=== PATIENT | female | born 1990 | race Hispanic/Latino ===

== ENCOUNTER 2018-04-08 10:04 | Emergency (ER) | payer BC ==
--- NOTE | 2018-04-08 10:30 | EDPHYS ---
Physician Documentation [facility] Name: Tanja Deleon Age: 28 yrs Sex: Female : 1990 Arrival Date: 04/08/2018 Time: 10:09 Bed 14 Private MD: Out, [facility] ED Physician Sebastian Fleming HPI: 04/08 10:25 This 28 yrs old Female presents to ER via Ambulatory with complaints of Ear gs Pain. 10:25 The patient presents with a fullness, pain. The complaints affect the right ear. Onset: gs The symptoms/episode began/occurred 2 day(s) ago. Modifying factors: The symptoms are alleviated by nothing, the symptoms are aggravated by touching. Associated signs and symptoms: Pertinent negatives: fever. Severity of symptoms: At their worst the symptoms were severe in the emergency department the symptoms are unchanged. The patient has not experienced similar symptoms in the past. 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 - Social history:: Smoking status: Patient/guardian denies using tobacco, Patient uses alcohol, only on a social basis. - Ebola Screening: : Patient negative for fever greater than or equal to 101.5 degrees Fahrenheit, and additional compatible Ebola Virus Disease symptoms Patient denies exposure to infectious person Patient denies travel to an Ebola-affected area in the 21 days before illness onset No symptoms or risks identified at this time. ROS: 10:25 All other systems are negative. gs Exam: 10:25 Head/Face: Normocephalic, atraumatic. Eyes: Pupils equal round and reactive to light, gs extra-ocular motions intact. Lids and lashes normal. Conjunctiva and sclera are non-icteric and not injected. Cornea within normal limits. Periorbital areas with no swelling, redness, or edema. Neck: Trachea midline, no thyromegaly or masses palpated, and no cervical lymphadenopathy. Supple, full range of motion without nuchal rigidity, or vertebral point tenderness. No Meningismus. Chest/axilla: Normal chest wall appearance and motion. Nontender with no deformity. No lesions are appreciated. Cardiovascular: Regular rate and rhythm with a normal S1 and S2. No gallops, murmurs, or rubs. Normal PMI, no JVD. No pulse deficits. Respiratory: Lungs have equal breath sounds bilaterally, clear to auscultation and percussion. No rales, rhonchi or wheezes noted. No increased work of breathing, no retractions or nasal flaring. Abdomen/GI: Soft, non-tender, with normal bowel sounds. No distension or tympany. No guarding or rebound. No evidence of tenderness throughout. Back: No spinal tenderness. No costovertebral tenderness. Full range of motion. Skin: Warm, dry with normal turgor. Normal color with no rashes, no lesions, and no evidence of cellulitis. MS/ Extremity: Pulses equal, no cyanosis. Neurovascular intact. Full, normal range of motion. Neuro: Awake and alert, GCS 15, oriented to person, place, time, and situation. Cranial nerves II-XII grossly intact. Motor strength 5/5 in all extremities. Sensory grossly intact. Cerebellar exam normal. Normal gait. 10:25 Constitutional: The patient appears alert, awake. 10:25 ENT: External ear(s): pain with movement, that is moderate, of the right ear canal, Ear canal(s): swelling, that is minimal, of the right canal, TM's: dullness, erythema, fluid levels, loss of bony landmarks, on the right. Vital Signs: 10:20 BP 148 / 106; Pulse 87; Resp 16; Temp 98.6; Pulse Ox 98% on R/A; Weight 91.63 kg; aj Height 5 ft. 0 in. (152.40 cm); Pain 9/10; 10:20 Body Mass Index 39.45 (91.63 kg, 152.40 cm) aj MDM: 10:23 Patient medically screened. gs 10:25 Differential diagnosis: otitis media, otitis externa, acute otalgia. Data reviewed: vital signs, nurses notes. Response to treatment: There is no appreciated change of the patient's symptoms at this time, and as a result, I will initiate a consult, with an ENT specialist. Administered Medications: 10:32 Drug: Farnam 10 mg-325 mg 1 tabs Route: PO; rb1 10:39 Follow up: Response: Medication administered at discharge. rb1 Disposition: 04/08/18 10:29 Discharged to Home. Impression: Otalgia and effusion of ear, Acute suppurative otitis media. - Condition is Stable. - Prescriptions for Ciprodex 0.3- 0.1 % Otic Drops, Suspension - instill 4 drop by OTIC route every 12 hours for 7 days , for ears ONLY; 1 Container. - Medication Reconciliation Form, Thank You Letter, Antibiotic Education, Prescription Opioid Use form. - Follow up: Private Physician; When: 2 - 3 days; Reason: Re-evaluation by your physician. Follow up: Gaby Angulo MD; When: Tomorrow; Reason: 230. Signatures: Ashley Whyte RN RN aj Meghan Hartman RN RN rb1 Sebastian Fleming MD MD Corrections: (The following items were deleted from the chart) 10:32 10:29 04/08/2018 10:29 Discharged to Home. Impression: Otalgia and effusion of ear; gs Acute suppurative otitis media. Condition is Stable. Forms are Medication Reconciliation Form, Thank You Letter, Antibiotic Education, Prescription Opioid Use. Follow up: Private Physician; When: 2 - 3 days; Reason: Re-evaluation by your physician. gs 10:40 10:32 04/08/2018 10:29 Discharged to Home. Impression: Otalgia and effusion of ear; rb1 Acute suppurative otitis media. Condition is Stable. Prescriptions for Ciprodex 0.3-0.1 % Otic Drops, Suspension - instill 4 drop by OTIC route every 12 hours for 7 days , for ears ONLY; 1 Container. and Forms are Medication Reconciliation Form, Thank You Letter, Antibiotic Education, Prescription Opioid Use. Follow up: Private Physician; When: 2 - 3 days; Reason: Re-evaluation by your physician. Follow up: Gaby Angulo; When: Tomorrow; Reason: 230. gs
--- NOTE | 2018-04-08 10:30 | ER ---
Nurse's Notes [facility] Name: Tanja Deleon Age: 28 yrs Sex: Female : 1990 Arrival Date: 04/08/2018 Time: 10:09 Bed 14 Private MD: Out, [facility] Diagnosis: Otalgia and effusion of ear;Acute suppurative otitis media Presentation: 04/08 10:18 Presenting complaint: Patient states: Ear pain and swelling since Saturday. Seen at [place] [facility] yesterday and given ABX and pain medications. Reports no relief. Transition of care: patient was not received from another setting of care. Onset of symptoms was April 05, 2018. Risk Assessment: Do you want to hurt yourself or someone else? Patient reports no desire to harm self or others. Initial Sepsis Screen: Does the patient meet any 2 criteria? No. Patient's initial sepsis screen is negative. Does the patient have a suspected source of infection? No. Patient's initial sepsis screen is negative. Care prior to arrival: None. 10:18 Method Of Arrival: Ambulatory 10:18 Acuity: ETHAN 4 Triage Assessment: 10:20 General: Appears in no apparent distress. comfortable, Behavior is calm, cooperative, aj appropriate for age. Pain: Complains of pain in right ear. EENT: Reports pain in right ear. Neuro: Level of Consciousness is awake, alert, obeys commands, Oriented to person, place, time, situation, Appropriate for age. Respiratory: Airway is patent Respiratory effort is even, unlabored, Respiratory pattern is regular, symmetrical. Derm: Skin is intact, is healthy with good turgor, Skin is pink, warm \T\ dry. normal. 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 - Social history:: Smoking status: Patient/guardian denies using tobacco, Patient uses alcohol, only on a social basis. - Ebola Screening: : Patient negative for fever greater than or equal to 101.5 degrees Fahrenheit, and additional compatible Ebola Virus Disease symptoms Patient denies exposure to infectious person Patient denies travel to an Ebola-affected area in the 21 days before illness onset No symptoms or risks identified at this time. Screenin:15 Abuse screen: Denies threats or abuse. Nutritional screening: No deficits noted. rb1 Tuberculosis screening: No symptoms or risk factors identified. Fall Risk None identified. Assessment: 10:15 General: Appears uncomfortable, Behavior is calm, cooperative, Denies fever. Pain: rb1 Complains of pain in right ear Pain currently is 10 out of 10 on a pain scale. Pain began 2-3 days ago. Neuro: Level of Consciousness is awake, alert, obeys commands, Oriented to person, place, time, situation. Cardiovascular: Capillary refill < 3 seconds is brisk in bilateral fingers. Respiratory: Airway is patent Respiratory effort is even, unlabored, Respiratory pattern is regular, symmetrical. GI: No signs and/or symptoms were reported involving the gastrointestinal system. : No signs and/or symptoms were reported regarding the genitourinary system. Derm: Skin is pink, warm \T\ dry. Vital Signs: 10:20 BP 148 / 106; Pulse 87; Resp 16; Temp 98.6; Pulse Ox 98% on R/A; Weight 91.63 kg; aj Height 5 ft. 0 in. (152.40 cm); Pain 9/10; 10:20 Body Mass Index 39.45 (91.63 kg, 152.40 cm) aj ED Course: 10:09 Patient arrived in ED. sb2 10:09 Out, Town is Private Physician. sb2 10:14 Sebastian Fleming MD is Attending Physician. gs 10:15 Meghan Hartman, RN is Primary Nurse. rb1 10:15 Patient has correct armband on for positive identification. Bed in low position. Call rb1 light in reach. Side rails up X 1. Pulse ox on. NIBP on. 10:19 Triage completed. aj 10:20 Arm band placed on left wrist. Patient placed in an exam room. aj 10:31 Gaby Angulo MD is Referral Physician. gs 10:39 No provider procedures requiring assistance completed. Patient did not have IV access rb1 during this emergency room visit. Administered Medications: 10:32 Drug: [place] 10 mg-325 mg 1 tabs Route: PO; rb1 10:39 Follow up: Response: Medication administered at discharge. rb1 Outcome: 10:29 Discharge ordered by MD. 10:39 Discharged to home ambulatory, with family. rb1 10:39 Condition: stable 10:39 Discharge instructions given to patient, Instructed on discharge instructions, follow up and referral plans. medication usage, Demonstrated understanding of instructions, follow-up care, medications, Prescriptions given X 1. 10:40 Patient left the ED. rb1 Signatures: Ashley Whyte RN RN Meghan Jenkins RN RN rb1 Sebastian Fleming MD MD Mariah Millan sb2
[2018-04-08] MEDS ORDERED: HYDROCODONE/APAP 10/325 TAB ONE (10:34)
== END 2018-04-08 10:40 | disposition home or self-care (01) ==
LOC: ER 10:04
DX: H66.001 Acute suppurative otitis media without spontaneous rupture of ear drum, right ear (principal)
CPT/HCPCS: 99283